=== PATIENT | female | born 1990 | race Caucasian/White ===

== ENCOUNTER 2021-11-12 16:22 | Emergency (ER) | payer OTHER, SELFPAY ==
--- NOTE | ~2021-11-12 | CT_ITS ---
EXAMINATION: CT CHEST, ABDOMEN AND PELVIS with contrast CLINICAL INFORMATION: Reason for Exam fall, trauma COMPARISON: None TECHNIQUE: Multidetector volumetric CT imaging of the chest abdomen and pelvis obtained Axial MIP volume rendering provided. Sagittal and coronal reformatted images were obtained. This CT examination was performed using dose optimization techniques as appropriate, variously including the following: *Automated exposure control *Adjustment of mA and/or kV according to patient size (this includes techniques or standardized protocols for targeted exams where dose is matched to indication/reason for exam; i.e. extremities or head) *Use of iterative reconstruction technique CONTRAST: Approximately 85 mL of Omnipaque 350 injected Reformatted coronal and sagittal imaging was performed. DLP: 519 mGy-cm FINDINGS: BULLDOZER MECHANIC, LINES TUBES: Slope Runner reviewed, no lines. LUNGS: Interstitial: Groundglass opacification left upper lobe 1.9 cm, this could be a groundglass nodule versus parenchymal hemorrhage from direct impact injury. Refer amezcua image. Lung nodules: No lung mass or suspicious spiculated nodules, there are few scattered tiny nonspecific lung nodular densities measuring up to 3 mm or less. AIRWAYS: Trachea and bronchi are normal. PLEURA: No pleural effusion or pneumothorax. MEDIASTINUM AND NAINA: The visualized thyroid gland is unremarkable. No mediastinal, hilar or axillary lymphadenopathy. There is no mediastinal mass. THORACIC AORTA: Thoracic aorta is normal in size. CHEST WALL, LOWER NECK, SURROUNDING SOFT TISSUES: Normal HEART AND PERICARDIUM: Heart is normal in size. There is no pericardial effusion. HEPATOBILIARY: No focal hepatic lesions. No biliary ductal dilatation. GALLBLADDER: Gallbladder unremarkable. SPLEEN: Spleen is normal in size. PANCREAS: No focal mass or ductal dilatation. GI TRACT: No distention or wall thickening. No CT evidence of appendicitis. ADRENALS: No adrenal nodules. KIDNEYS/URETERS: No hydronephrosis, stones or solid mass lesions. PELVIC ORGANS/BLADDER: There is IUD in the uterus otherwise unremarkable. PERITONEUM: No free air or fluid. LYMPH NODES: no retroperitoneal or mesenteric lymphadenopathy. VASCULAR:Abdominal aorta normal in size, no aneurysm found. BONES, ABDOMINAL WALL AND SOFT TISSUES: There is subcutaneous mass in the posterior back 7.1 x 4.4 cm, given patient history of trauma may represent subcutaneous hematoma from direct injury, there is surrounding subcutaneous fat stranding, it is situated posterior at midline to the posterior spinous process of L3, L4 and L5. No associated bone fracture. CT/CT abdomen pelvis w IV con IMPRESSION: *Large subcutaneous complex structure 7.1 cm, and the right clinical setting could be hematoma. No associated bone fracture or intra-abdominal solid organ injuries. Attention to follow-up recommended to ensure complete resolution. *An area of groundglass opacification in the left upper lobe 1.8 cm could be groundglass nodule versus pulmonary parenchymal hemorrhage from direct injury. *No CT evidence of solid organ injury. *IUD in place.
--- NOTE | ~2021-11-12 | CT_ITS ---
EXAMINATION: NONCONTRAST HEAD CT NONCONTRAST CERVICAL SPINE CT INDICATION INFORMATION: Fall with head strike COMPARISON: None TECHNIQUE: Separate noncontrast CT examinations of the head and cervical spine were performed. Coronal and sagittal images were created for each examination at the technologist workstation. This CT examination was performed using dose optimization techniques as appropriate, variously including the following: *Automated exposure control *Adjustment of mA and/or kV according to patient size (this includes techniques or standardized protocols for targeted exams where dose is matched to indication/reason for exam; i.e. extremities or head) *Use of iterative reconstruction technique DLP: 1112 mGy-cm FINDINGS: HEAD: Exam quality significantly limited due to motion artifact. Small 1.2 x 1 cm hyperdense rounded focus overlying the anterolateral right temporal lobe on series 10 image 90, consistent with a small hematoma. Uncertain as to whether or not this is intra-axial versus extra-axial, favor the latter. No other intra or extra-axial fluid collection, hemorrhage, or mass. No ventriculomegaly or midline shift. Basal cisterns are suboptimally evaluated due to patient motion. Evidence of herniation however. Borrego-white matter differentiation is maintained. No significant volume loss. There is no abnormal attenuation within the brain parenchyma. No calvarial fracture or soft tissue abnormality. Mucosal thickening in the ethmoid sinuses and minimally in the maxillary antra. Mastoid air cells are normally aerated. CERVICAL SPINE: Alignment: Normal. No subluxation. Vertebra: No acute fracture. No prevertebral soft tissue swelling. Degenerative disc disease: No significant. Preserved intervertebral disc heights. Other findings: No cervical lymphadenopathy. Visualized major salivary glands and thyroid gland are unremarkable. Visualized lung apices are clear. CT/CT cervical spine wo IV con IMPRESSION: 1. Exam quality degraded by motion artifact. 2. Small 1.2 x 1.1 cm hyperdense focus overlying the anterolateral right temporal lobe, consistent with intracranial hemorrhage. Uncertain as to whether or not this is intraaxial versus extra-axial location on the basis of this exam. No appreciable overlying calvarial fracture. 3. No other intracranial hemorrhage or calvarial fracture. 4. No traumatic subluxation or acute cervical spine fracture.
--- NOTE | ~2021-11-12 | CT_ITS ---
EXAMINATION: CT CHEST, ABDOMEN AND PELVIS with contrast CLINICAL INFORMATION: Reason for Exam fall, trauma COMPARISON: None TECHNIQUE: Multidetector volumetric CT imaging of the chest abdomen and pelvis obtained Axial MIP volume rendering provided. Sagittal and coronal reformatted images were obtained. This CT examination was performed using dose optimization techniques as appropriate, variously including the following: *Automated exposure control *Adjustment of mA and/or kV according to patient size (this includes techniques or standardized protocols for targeted exams where dose is matched to indication/reason for exam; i.e. extremities or head) *Use of iterative reconstruction technique CONTRAST: Approximately 85 mL of Omnipaque 350 injected Reformatted coronal and sagittal imaging was performed. DLP: 519 mGy-cm FINDINGS: INSERTER OPERATOR, LINES TUBES: Clinical Trial Coordinator reviewed, no lines. LUNGS: Interstitial: Groundglass opacification left upper lobe 1.9 cm, this could be a groundglass nodule versus parenchymal hemorrhage from direct impact injury. Refer amezcua image. Lung nodules: No lung mass or suspicious spiculated nodules, there are few scattered tiny nonspecific lung nodular densities measuring up to 3 mm or less. AIRWAYS: Trachea and bronchi are normal. PLEURA: No pleural effusion or pneumothorax. MEDIASTINUM AND NAINA: The visualized thyroid gland is unremarkable. No mediastinal, hilar or axillary lymphadenopathy. There is no mediastinal mass. THORACIC AORTA: Thoracic aorta is normal in size. CHEST WALL, LOWER NECK, SURROUNDING SOFT TISSUES: Normal HEART AND PERICARDIUM: Heart is normal in size. There is no pericardial effusion. HEPATOBILIARY: No focal hepatic lesions. No biliary ductal dilatation. GALLBLADDER: Gallbladder unremarkable. SPLEEN: Spleen is normal in size. PANCREAS: No focal mass or ductal dilatation. GI TRACT: No distention or wall thickening. No CT evidence of appendicitis. ADRENALS: No adrenal nodules. KIDNEYS/URETERS: No hydronephrosis, stones or solid mass lesions. PELVIC ORGANS/BLADDER: There is IUD in the uterus otherwise unremarkable. PERITONEUM: No free air or fluid. LYMPH NODES: no retroperitoneal or mesenteric lymphadenopathy. VASCULAR:Abdominal aorta normal in size, no aneurysm found. BONES, ABDOMINAL WALL AND SOFT TISSUES: There is subcutaneous mass in the posterior back 7.1 x 4.4 cm, given patient history of trauma may represent subcutaneous hematoma from direct injury, there is surrounding subcutaneous fat stranding, it is situated posterior at midline to the posterior spinous process of L3, L4 and L5. No associated bone fracture. CT/CT chest w IV con IMPRESSION: *Large subcutaneous complex structure 7.1 cm, and the right clinical setting could be hematoma. No associated bone fracture or intra-abdominal solid organ injuries. Attention to follow-up recommended to ensure complete resolution. *An area of groundglass opacification in the left upper lobe 1.8 cm could be groundglass nodule versus pulmonary parenchymal hemorrhage from direct injury. *No CT evidence of solid organ injury. *IUD in place.
--- NOTE | 2021-11-12 16:38 | ED.GENADULT ---
HPI - General Adult General Chief complaint: Fall Stated complaint: Fall Time Seen by Provider: 11/12/21 16:34 Source: patient Mode of arrival: ambulatory Limitations: no limitations History of Present Illness HPI narrative: 30 year old female no significant past medical history presents with severe lower back pain s/p fall around 0930 today. Patient tells me she was going down the stairs to do laundry and she slipped down 2 stairs hitting her lower back on the edge of the stairs, she tells me initially was an aching pain however about 30 minutes ago patient reports severe sudden onset excruciating 10/10 sharp pain to the lower back, she tells me she noted that the area became very swollen and very painful. Patient crying, screaming out in pain upon arrival. Patient reports when she fell she did not hit her head or lose consciousness. She tells me the reason she fell was she was holding onto a railing which was leuks. Patient is not on blood thinners. Patient with vague complaints of shortness of breath. Patient denies chest pain, nausea, vomiting, headache, dizziness, head strike, vision changes, weakness. Patient denies IV drug abuse. Patient denies EtOH use. No known coagulation issues Related Data Allergies Allergy/AdvReac Type Severity Reaction Status Date / Time codeine [Codeine] Allergy Unknown ITCHING/HIV Unverified 11/06/19 16:02 ES sulfamethoxazole Allergy Unknown SOB Unverified 11/06/19 16:02 [From Bactrim] trimethoprim [From Bactrim] Allergy Unknown SOB Unverified 11/06/19 16:02 Review of Systems Review of Systems: Constitutional : No Weight loss, No Fever, No Chills, No Fatigue, No Malaise ENT/Mouth : No sore throat, No Rhinorrhea Eyes: No Eye Pain, No Swelling, No Redness Cardiovascular : No Chest Pain, No SOB, No Dyspnea on Exertion, No Orthopnea, No Edema, No Palpitations Respiratory : No Cough, No Sputum, No Wheezing Gastrointestinal : No Nausea, No Vomiting, No Diarrhea, No Constipation, No abdominal Pain, No Hematochezia, No Melena Genitourinary : No Dysuria, No Urinary Frequency, No Hematuria, Musculoskeletal : No joint pain, No Myalgias, No Joint Swelling Skin : No Skin Lesions, No rash Neuro : No Weakness, No Numbness, No Dizziness, No Headache Psych : No Anxiety/Panic, No Depression Heme/Lymph: + Bruising, No Bleeding,No Lymphadenopathy All other systems reviewed and are negative Yes all other systems are reviewed and are negative ON LICENSE OF [facility] Past Medical History Attestation statement: The following information was validated with the patient. Source: old records reviewed and nursing notes reviewed Social History Social History Patient Tobacco Use Status: Current everyday Tobacco user Use of substances other than those prescribed or required for medical reasons: No Advance Directives: No Advance Directives Information Provided: Yes Physical Exam ED Vital Signs: Vital Signs - 24 hr 11/12/21 16:48 11/12/21 16:50 11/12/21 17:28 Temperature 97.4 F 97.4 F Pulse Rate 116 H 116 H 96 Respiratory Rate 20 18 Blood Pressure 107/72 107/72 121/71 Pulse Oximetry 97 97 Oxygen Delivery Method Room Air 11/12/21 17:47 11/12/21 17:00 Temperature 98.4 F Pulse Rate 96 96 Respiratory Rate 18 18 Blood Pressure 112/65 121/71 Pulse Oximetry 95 Oxygen Delivery Method Room Air BMI result Body Mass Index 0.0 vss Appearance: Alert.? Oriented X3.? No acute distress.? Head: Normocephalic, atraumatic, no step-offs or deformities Eyes: Pupils equal, round and reactive to light.? ENT: Pharynx normal.? Neck: Normal inspection.? Neck supple.? CVS: Normal heart rate and rhythm.? Pulses normal.? Respiratory: No respiratory distress.? Breath sounds normal.? Abdomen: Soft and nontender.? Skin: Skin warm and dry.? Normal skin color.? Normal skin turgor.? There are bruises noted to bilateral upper extremities appear to be in the shape of finger prints. Extremities: No lower extremity edema.? No calf ttp. 5/5 strength to bilateral upper and lower extremities Back: No midline tenderness, no C-spine tenderness, full range of motion, no CVA tenderness bilaterally +large hematoma measuring about 12 cm x 10 cm to right lower back, painful to palpation, no midline back tenderness, Neuro: Oriented X 3.? No motor deficit.? No sensory deficit. CN 2-12 intact Course Course Course Narrative: Patient reports that information is not be shared with her emergency contact as she currently has an active restraining order with this patient. Reevaluation(s) Reevaluation #1: Trauma transfer to [facility] category to 4 suspicion of retroperitoneal hematoma that is expanding rapidly. Dr. Craig accepting Time: 16:59 Reevaluation #2: Hematoma continues to continually enlarged. MTP called overhead for precautionary measures. Suspected blood loss secondary to size increasing, Dr. Mccurdy attending at bedside with me requests 1 unit of PRBC Time: 17:24 Reevaluation #3: CBC with a slight normocytic anemia. Chemistry with no acute electrolyte abnormalities requiring intervention. PT 13.5 INR 1.2. Ethanol negative. Time: 17:35 Additional Reevaluation(s): 1739 ETA for [facility]. [facility] to meet [facility] for transfer. 1753 Patient hemodynamically stable. Medical Decision Making MDM Narrative Medical decision making narrative: 1641 30 year old female presents with a large hematoma to her lower back status post falling down the stairs. In excruciating pain. Not on blood thinners. Physical examination significant for a large hematoma measuring about 12 cm x 10 cm to right lower back, painful to palpation, no midline back tenderness, no saddle paresthesias, normal sensation to lower extremities, patient hemodynamically stable at this time. Patient appears extremely uncomfortable. Vital signs stable however pressure on the soft side. Concerns for retroperitoneal hematoma or Paraspinous hematoma. Unlikely cauda equina or epidural abscess. Immediately upon patient arrival a trauma protocol was initiated. Dr. Mccurdy immediatly informed of case, and at the bedside. Medical Records Medical records reviewed: Yes I reviewed the patient's medical records. Lab Data Lab results reviewed: Yes I reviewed the patient's lab results. Result diagrams: 11/12/21 16:40 11/12/21 16:40 Labs: Lab Results 11/12/21 11/12/21 11/12/21 Range/Units 16:40 16:40 16:40 WBC 8.0 (4.8-10.8) X10*3/uL RBC 4.01 L (4.20-5.50) X10*6/uL Hgb 11.7 L (12.0-16.0) g/dl Hct 35.8 L (37.0-47.0) % MCV 89.3 (80.0-98.0) fL MCH 29.2 (27.0-33.0) pg MCHC 32.7 (31.0-35.0) g/dl RDW 13.4 (11.0-16.0) % Plt Count 197 (160-400) X10*3/uL MPV 12.0 (9.4-12.3) fL Immature Gran % (Auto) 0.5 H (0.0-0.4) % Neut % (Auto) 52.0 (45-73) % Lymph % (Auto) 29.2 (20-40) % Roane % (Auto) 7.3 (2-11) % Eos % (Auto) 10.3 H (0-4) % Baso % (Auto) 0.7 (0-2) % Lymph # (Auto) 2.4 (1.2-4.9) X10*3/uL Roane # (Auto) 0.6 (0.1-1.2) X10*3/uL Eos # (Auto) 0.8 H (0.0-0.4) X10*3/uL Baso # (Auto) 0.1 (0.0-0.2) X10*3/uL Abs Immat Gran (auto) 0.04 H (0.00-0.03) X10*3/uL Absolute Neuts (auto) 4.2 (2.0-8.3) x10*3/uL Absolute Nucleated RBC 0.000 (0.0-0.012) X10*3/uL Nucleated RBC % (auto) 0.0 (0.0-0.2) /100WBC PT 13.5 H (10.0-13.1) SEC INR 1.2 H (0.9-1.1) Sodium 141 (135-145) mmol/L Potassium 4.5 (3.3-5.1) mmol/L Chloride 104 (96-108) mmol/L Carbon Dioxide 24 (22-29) mmol/L Anion Gap 18 (12-20) BUN 13 (9-16) mg/dL Creatinine 0.70 (0.5-1.4) mg/dL Estim Creat Clear Calc TNP Estimated GFR > 60 Random Glucose 93 (60-115) mg/dL Calcium 9.7 (8.4-10.2) mg/dL Magnesium 1.9 (1.6-2.6) mg/dL Total Bilirubin 0.6 (0.0-1.0) mg/dL AST 44 H (5-31) U/L ALT 30 (0-31) U/L Alkaline Phosphatase 93 (39-117) U/L Total Creatine Kinase 156 H (26-140) U/L Total Protein 7.1 (6.5-8.0) g/dL Albumin 4.3 (3.5-5.0) g/dL Ethyl Alcohol < 10 mg/dL Blood Type Antibody Screen Crossmatch 11/12/21 Range/Units 16:45 WBC (4.8-10.8) X10*3/uL RBC (4.20-5.50) X10*6/uL Hgb (12.0-16.0) g/dl Hct (37.0-47.0) % MCV (80.0-98.0) fL MCH (27.0-33.0) pg MCHC (31.0-35.0) g/dl RDW (11.0-16.0) % Plt Count (160-400) X10*3/uL MPV (9.4-12.3) fL Immature Gran % (Auto) (0.0-0.4) % Neut % (Auto) (45-73) % Lymph % (Auto) (20-40) % Roane % (Auto) (2-11) % Eos % (Auto) (0-4) % Baso % (Auto) (0-2) % Lymph # (Auto) (1.2-4.9) X10*3/uL Roane # (Auto) (0.1-1.2) X10*3/uL Eos # (Auto) (0.0-0.4) X10*3/uL Baso # (Auto) (0.0-0.2) X10*3/uL Abs Immat Gran (auto) (0.00-0.03) X10*3/uL Absolute Neuts (auto) (2.0-8.3) x10*3/uL Absolute Nucleated RBC (0.0-0.012) X10*3/uL Nucleated RBC % (auto) (0.0-0.2) /100WBC PT (10.0-13.1) SEC INR (0.9-1.1) Sodium (135-145) mmol/L Potassium (3.3-5.1) mmol/L Chloride (96-108) mmol/L Carbon Dioxide (22-29) mmol/L Anion Gap (12-20) BUN (9-16) mg/dL Creatinine (0.5-1.4) mg/dL Estim Creat Clear Calc Estimated GFR Random Glucose (60-115) mg/dL Calcium (8.4-10.2) mg/dL Magnesium (1.6-2.6) mg/dL Total Bilirubin (0.0-1.0) mg/dL AST (5-31) U/L ALT (0-31) U/L Alkaline Phosphatase (39-117) U/L Total Creatine Kinase (26-140) U/L Total Protein (6.5-8.0) g/dL Albumin (3.5-5.0) g/dL Ethyl Alcohol mg/dL Blood Type A Positive Antibody Screen NEGATIVE Crossmatch See Detail Critical Care Time Critical Care Time Critical Care Time: Yes Total Critical Care Time: 90 Attestation: I attest to this time spent taking care of the patient, obtaining history, physical, reviewing labs, imaging, speaking to my attending, speaking to specialist. Discharge Plan Discharge Clinical Impression: Hematoma, Fall, Lower back pain Patient Disposition: Xfer [facility] Transfer Details: Trauma Category II accepting physician. Interventions: Acute Care Transfer Worksheet (ED) Last Done: 11/12/21 18:25 Discharge Date/Time: 11/12/21 18:25
[2021-11-12 16:44] LABS: MANUAL DIFF FLAG NO
[2021-11-12 16:48] VITALS: BP 107/72; PULSE 116; TEMP 36.3; O2SAT 97
[2021-11-12 16:50] VITALS: BP 107/72; PULSE 116; RESP 20; TEMP 36.3; O2SAT 97
[2021-11-12 16:52] LABS: INTERNATIONAL NORM RATIO 1.2 (0.9-1.1); Prothrombin Time 13.5 SEC (10.0-13.1)
--- NOTE | 2021-11-12 16:55 | PC.NURSE ---
CALL OUT TO [facility] TRANSFER LINE @6007 REGARDING TRAUMA TRANSFER [facility] WILL CALL BACK WITH REPORT
[2021-11-12 17:00] VITALS: BP 121/71; PULSE 96; RESP 18; TEMP 36.9
[2021-11-12 17:10] LABS: Alanine Aminotransferase 30 U/L (0-31); Albumin Level 4.3 g/dL (3.5-5.0); Alkaline Phosphatase 93 U/L (39-117); Anion Gap 18 (12-20); Aspartate Amino Transferase 44 U/L (5-31); Bilirubin Total 0.6 mg/dL (0.0-1.0); Blood Urea Nitrogen 13 mg/dL (9-16); Calcium 9.7 mg/dL (8.4-10.2); Carbon Dioxide 24 mmol/L (22-29); Chloride 104 mmol/L (96-108); Estimated Glomerular Filt Rate > 60; Ethanol < 10 mg/dL; Glucose Random 93 mg/dL (60-115); Magnesium 1.9 mg/dL (1.6-2.6); Potassium 4.5 mmol/L (3.3-5.1); Sodium 141 mmol/L (135-145); Total Protein 7.1 g/dL (6.5-8.0)
[2021-11-12 17:12] LABS: Basophils Absolute Auto 0.1 X10*3/uL (0.0-0.2); Basophils Percent Auto 0.7 % (0-2); Eosinophils Absolute Auto 0.8 X10*3/uL (0.0-0.4); Eosinophils Percent Auto 10.3 % (0-4); Hematocrit 35.8 % (37.0-47.0); Hemoglobin 11.7 g/dl (12.0-16.0); Imm Gran Abs Auto 0.04 X10*3/uL (0.00-0.03); Imm Gran Pct Auto 0.5 % (0.0-0.4); Lymphocytes Absolute Auto 2.4 X10*3/uL (1.2-4.9); Lymphocytes Percent Auto 29.2 % (20-40); Mean Corpuscular HGB Conc 32.7 g/dl (31.0-35.0); Mean Corpuscular Hemoglobin 29.2 pg (27.0-33.0); Mean Corpuscular Volume 89.3 fL (80.0-98.0); Monocytes Absolute Auto 0.6 X10*3/uL (0.1-1.2); Monocytes Percent Auto 7.3 % (2-11); Neutrophils Absolute Auto 4.2 x10*3/uL (2.0-8.3); Platelet Count 197 X10*3/uL (160-400); Red Blood Count 4.01 X10*6/uL (4.20-5.50); Red Cell Distribution Width 13.4 % (11.0-16.0)
[2021-11-12] MEDS: fentaNYL citrate/PF 100 MCG/2 ML VIAL 25 MCG IVPUSH ×2 (17:16→17:57)
[2021-11-12] MEDS: 0.9 % Sodium Chloride 1,000 ML 999 ML IV (17:20)
--- NOTE | 2021-11-12 17:24 | PC.NURSE ---
Dr. Edouard at the bedside. Kwesi wrap on hematoma on lower back pt alert and oriented, speaking in full sentences, skin pwd, respiration even and unlabored, mtp called and one unite on a presser bag infusing, vs stable at this time
[2021-11-12 17:28] VITALS: BP 121/71; PULSE 96; RESP 18
[2021-11-12] MEDS: iohexoL 350 MG/ML 100 ML INFUS..BTL IV (17:29)
--- NOTE | 2021-11-12 17:36 | PC.NURSE ---
CALL OUT TO [facility] @1654 TO BOOK ALS TRANSFER WAS TOLD NO AMBULANCE TRANSFERS UNTIL SUNDAY (11/14) WAS INFORMED TO CALL OTHER AMBULANCE SERVICES TO TRANSFER PATIENT AND CALL BACK IN TWO MINUTES CALLED [facility] @1700 WAS TOLD THIS WAS NOT CONSIDERED AN ALS TRANSFER AFTER GIVEN THE DETAILS ON PATIENT ZAKIA BOWLING TOOK OVER CALL AND EXPLAINED PATIENT NECESSITIES IN DETAIL AND [facility] EXPLAINED THEY COULD NOT TRANSFER PATIENT CALL OUT TO [facility] ST[facility] @1709 THEY ACCEPTED PATIENT TRANSFER ETA 1748 [place] [facility] INFORMED @1717 [place] [facility] INFORMED @1718 [facility] CALLED AT @1719 WAS TOLD THERE ARE NO TRUCKS CALLED [facility] AGAIN @1740 AND INFORMED A TRUCK WILL BE AT [facility] TO HELP WITH TRANSPORT
[2021-11-12 17:47] VITALS: BP 112/65; PULSE 96; RESP 18; O2SAT 95
--- NOTE | 2021-11-12 18:24 | PC.NURSE ---
report given to skylar downs at [facility]
[2021-11-12 20:33] LABS: Albumin Level 4.3 g/dL (3.5-5.0); Calcium 9.5 mg/dL (8.4-10.2)
== END 2021-11-12 18:25 | disposition short-term general hospital (02) ==
PROVIDERS: Physician Assistant; Emergency Provider Student in an Organized Health Care Education/Training Program; PCP Pediatrics
DX: S06.300A Unspecified focal traumatic brain injury without loss of consciousness, initial encounter (principal); S30.0XXA Contusion of lower back and pelvis, initial encounter; W10.8XXA Fall (on) (from) other stairs and steps, initial encounter; M54.50 Low back pain, unspecified; R91.8 Other nonspecific abnormal finding of lung field; F17.200 Nicotine dependence, unspecified, uncomplicated; Y93.E2 Activity, laundry; Y92.018 Other place in single-family (private) house as the place of occurrence of the external cause; Y99.9 Unspecified external cause status; Z20.822 Contact with and (suspected) exposure to COVID-19
CPT/HCPCS: 36415; 36430; 70450; 71260; 72125; 74177; 80053; 82040; 82077; 82310; 82550; 83735; 85025; 85610; 86850; 86900; 86901; 86920; 86923; 96374; 96376; 99285; J3010; P9016; Q9967